=== PATIENT | female | born 1995 | race African-American/Black ===

== ENCOUNTER 2018-09-05 04:58 | Emergency (ER) | payer MEDICAID ==
[~2018-09-05] VITALS: Ht 170.2 cm; Wt 64.4 kg
[2018-09-05 05:10] VITALS: Ht 170.2 cm; Wt 64.4 kg
[2018-09-05 07:33] VITALS: BP 118/62
[2018-09-05 08:24] LABS: UA SPECIFIC GRAVITY 1.015 (1.005-1.035); microscopic required? YES; urine erythrocyte TRACE (NEGATIVE)
== END 2018-09-05 07:33 | disposition home or self-care (01) ==
LOC: ED 04:58
PROVIDERS: Emergency Medicine
DX: N76.0 Acute vaginitis (principal); R11.10 Vomiting, unspecified; F17.210 Nicotine dependence, cigarettes, uncomplicated
CPT/HCPCS: 87491; 87591